=== PATIENT | female | born 1935 | race African-American/Black ===

== ENCOUNTER 2020-09-06 09:16 | Inpatient (IN) | payer MEDICARE ==
[~2020-09-06] VITALS: Ht 167.6 cm; Wt 61.2 kg
[2020-09-06] MEDS ORDERED: IBUPROFEN 600MG TABLET PO STA (09:41)
[2020-09-06] MEDS ORDERED: SODIUM CHLORIDE 0.9% 500 ML IV ONE (09:45)
[2020-09-06 10:03] LABS: BASOPHILS % 0.4 % (0.0-2.0); EOSINOPHILS % 1.6 % (0.0-5.0); HEMATOCRIT. 43.5 % (36.0-48.0); HEMOGLOBIN. 14.5 g/dL (12.0-16.0); LYMPHOCYTES % 9.7 % (20.0-50.0); MEAN CORPUSCULAR HEMOGLOBIN 31.8 pg (28.0-32.0); MEAN CORPUSCULAR VOLUME 95.5 fL (81.0-99.0); MEAN PLATELET VOLUME 8.5 fl (7.4-10.4); MONOCYTES % 5.5 % (2.0-8.0); NEUTROPHILS % 82.8 % (40.0-76.0); PLATELET 175 x1000/uL (130-400); RED BLOOD CELL COUNT 4.55 mill/uL (4.2-5.4); RED CELL DISTRIBUTION WIDTH 13.2 % (11.6-14.6)
[2020-09-06 10:11] LABS: CHLORIDE 105 mEq/L (98-107)
[2020-09-06 10:16] LABS: PROTHROMBIN TIME 10.8 sec (9.6-11.0)
[2020-09-06] MEDS ORDERED: CEFTRIAXONE 1 G PREMIX 50 ML IV SCH (10:30)
[2020-09-06 11:27] LABS: CLARITY URINE CLOUDY (CLEAR); COLOR URINE YELLOW (YELLOW); KETONES URINE NEGATIVE (NEGATIVE); LEUKOCYTE ESTERASE URINE 1+ (NEGATIVE); NITRITE URINE POSITIVE (NEGATIVE); OCCULT BLOOD URINE NEGATIVE (NEGATIVE); PH URINE 7.5 (4.5-8.0); PROTEIN URINE 1+ (NEGATIVE); SPECIFIC GRAVITY URINE 1.008 (1.005-1.030); UROBILINOGEN URINE 0.2 E.U./dL (0.2-1.0)
[2020-09-06] MEDS ORDERED: IPRATROPIUM/ALBUTEROL 0.5-3(2.5)MG/3ML NEB NEB PRN (17:00)
[2020-09-06] MEDS ORDERED: TRAMADOL 50MG TABLET PO PRN ×2 (17:00)
[2020-09-06] MEDS ORDERED: DOCUSATE SODIUM 100MG CAPSULE PO PRN (17:00)
[2020-09-06] MEDS ORDERED: NA PHOS,M-B/NA PHOS,DI-BA ENEMA 118ML PR PRN (17:00)
[2020-09-06] MEDS ORDERED: GUAIFENESIN 200MG/10ML SUGAR FREE UDC PO PRN (17:00)
[2020-09-06] MEDS ORDERED: ACETAMINOPHEN 325MG TABLET PO PRN (17:00)
[2020-09-06] MEDS ORDERED: LEVOFLOXACIN 500MG PREMIX 100 ML IV SCH (17:00)
[2020-09-06] MEDS ORDERED: KETOROLAC 15MG/ML VIAL IV PRN (17:00)
[2020-09-06] MEDS ORDERED: MAGNESIUM/ALUMINUM HYDROXIDE/SIMETHICONE 30ML UDC PO PRN (17:00)
[2020-09-06] MEDS: FAMOTIDINE 20MG TABLET PO SCH (18:04)
[2020-09-06] MEDS: ONDANSETRON HCL 4MG/2ML INJ IV PRN (18:04)
[2020-09-06] MEDS ORDERED: ZOLPIDEM TARTRATE 5MG TABLET PO PRN (20:00)
[2020-09-06 20:22] LABS: FOLIC ACID (FOLATE) SERUM 10.1 ng/mL (>5.38)
[2020-09-06 23:20] LABS: CREATINE KINASE 89 IU/L (26-192)
[2020-09-06 23:21] LABS: CREATINE KINASE MB FRACTION 1.5 ng/mL (0.5-3.6)
[2020-09-07] VITALS: BP 144/72
[2020-09-07] MEDS ORDERED: KEPP250 MT (01:22)
[2020-09-07] MEDS ORDERED: PANT40TA51 MT (01:22)
[2020-09-07] MEDS ORDERED: CARV3.1242 MT (01:22)
[2020-09-07] MEDS ORDERED: AMLO5TAB88 MT (01:22)
[2020-09-07] MEDS ORDERED: FURO-152 MT (01:22)
[2020-09-07 04:30] VITALS: BP 125/70
[2020-09-07] MEDS: ONDANSETRON HCL 4MG/2ML INJ IV PRN (08:33)
[2020-09-07 08:41] LABS: BASOPHILS % 0.3 % (0.0-2.0); EOSINOPHILS % 1.6 % (0.0-5.0); HEMATOCRIT. 39.2 % (36.0-48.0); HEMOGLOBIN. 13.1 g/dL (12.0-16.0); LYMPHOCYTES % 13.2 % (20.0-50.0); MEAN CORPUSCULAR HEMOGLOBIN 32.2 pg (28.0-32.0); MEAN CORPUSCULAR VOLUME 96.1 fL (81.0-99.0); MONOCYTES % 7.4 % (2.0-8.0); NEUTROPHILS % 77.5 % (40.0-76.0); PLATELET 171 x1000/uL (130-400); RED BLOOD CELL COUNT 4.08 mill/uL (4.2-5.4); RED CELL DISTRIBUTION WIDTH 12.9 % (11.6-14.6)
[2020-09-07 09:01] LABS: CHLORIDE 107 mEq/L (98-107)
[2020-09-07 09:14] LABS: PHOSPHORUS 3.5 mg/dL (2.5-4.9)
[2020-09-07 09:17] LABS: CREATINE KINASE 111 IU/L (26-192)
[2020-09-07] MEDS: ASPIRIN 325MG EC TABLET PO SCH (09:47)
[2020-09-07] MEDS: CHOLECALCIFEROL (D3) 1000 UNIT TABLET PO SCH (09:47)
[2020-09-07] MEDS: ZINC SULFATE 220 MG ( 50 ) CAPSULE PO SCH (09:47)
[2020-09-07] MEDS: ENOXAPARIN 30MG/0.3ML SYR SUBCUT SCH ×2 (09:48→17:15)
[2020-09-07 10:30] VITALS: BP 156/77
[2020-09-07 12:00] VITALS: BP 154/76
[2020-09-07 16:00] VITALS: BP 147/78
[2020-09-07] MEDS: LEVOFLOXACIN 250MG PREMIX 50 ML IV SCH (17:24)
[2020-09-07] MEDS: FAMOTIDINE 20MG TABLET PO SCH (17:25)
[2020-09-07] MEDS ORDERED: INSU100I28 SQ (20:13)
[2020-09-07 20:30] VITALS: BP_SYST 139; BP_SYST 161; BP_DIAS 52; BP_DIAS 82
[2020-09-07] MEDS: CLONIDINE 0.1MG TABLET PO PRN (21:54)
[2020-09-07] MEDS ORDERED: ASPI-986 MT (23:05)
[2020-09-07] MEDS ORDERED: Vitamin D3 PO (23:05)
[2020-09-07] MEDS ORDERED: INSLIS SUBCUT (23:05)
[2020-09-08 00:30] VITALS: BP 139/78
[2020-09-08 04:30] VITALS: BP 149/80
[2020-09-08] MEDS: ZINC SULFATE 220 MG ( 50 ) CAPSULE PO SCH (08:54)
[2020-09-08] MEDS: ASPIRIN 325MG EC TABLET PO SCH (08:54)
[2020-09-08] MEDS: CLONIDINE 0.1MG TABLET PO PRN (08:54)
[2020-09-08 09:24] VITALS: BP 165/78
[2020-09-08] MEDS: ACETAMINOPHEN 325MG TABLET PO PRN ×2 (10:23→23:16)
[2020-09-08] MEDS: CHOLECALCIFEROL (D3) 1000 UNIT TABLET PO SCH (14:45)
[2020-09-08] MEDS: FAMOTIDINE 20MG TABLET PO SCH (17:09)
[2020-09-08] MEDS: ENOXAPARIN 30MG/0.3ML SYR SUBCUT SCH (17:09)
[2020-09-08] MEDS: LEVOFLOXACIN 250MG PREMIX 50 ML IV SCH (17:09)
[2020-09-08 17:46] VITALS: BP 154/71
[2020-09-08 20:30] VITALS: BP 149/82
[2020-09-09] VITALS (7 sets, daily range): BP systolic 138–162; BP diastolic 61–84
[2020-09-09] MEDS: ZINC SULFATE 220 MG ( 50 ) CAPSULE PO SCH (08:47)
[2020-09-09] MEDS: ASPIRIN 325MG EC TABLET PO SCH (08:47)
[2020-09-09] MEDS: CARVEDILOL 3.125 MG TABLET PO SCH ×2 (08:47→17:15)
[2020-09-09] MEDS: LEVETIRACETAM 250MG TABLET PO SCH ×2 (08:47→17:15)
[2020-09-09] MEDS: ACETAMINOPHEN 325MG TABLET PO PRN (08:52)
[2020-09-09] MEDS: ONDANSETRON HCL 4MG/2ML INJ IV PRN (08:52)
[2020-09-09] MEDS ORDERED: AMLODIPINE 5MG TABLET PO SCH (09:00)
[2020-09-09] MEDS: CHOLECALCIFEROL (D3) 1000 UNIT TABLET PO SCH (10:09)
[2020-09-09] MEDS: FAMOTIDINE 20MG TABLET PO SCH (17:15)
[2020-09-09] MEDS: ENOXAPARIN 30MG/0.3ML SYR SUBCUT SCH (17:15)
[2020-09-09] MEDS: LEVOFLOXACIN 250MG PREMIX 50 ML IV SCH (17:16)
== END 2020-09-09 18:34 | disposition home health service (06) | DRG 871 ==
LOC: ER 09:16 → MICUSO 14:21 → SUPCPDRO 16:54 → 6WST 23:20
PROVIDERS: ADMIT Internal Medicine; ATTEND Internal Medicine
DX: A41.9 Sepsis, unspecified organism (principal); N17.0 Acute kidney failure with tubular necrosis; E44.1 Mild protein-calorie malnutrition; N39.0 Urinary tract infection, site not specified; E11.9 Type 2 diabetes mellitus without complications; J44.9 Chronic obstructive pulmonary disease, unspecified; I10 Essential (primary) hypertension; B96.20 Unspecified Escherichia coli [E. coli] as the cause of diseases classified elsewhere; E78.00 Pure hypercholesterolemia, unspecified; I25.10 Atherosclerotic heart disease of native coronary artery without angina pectoris; W18.39XA Other fall on same level, initial encounter; Z95.1 Presence of aortocoronary bypass graft; Z68.21 Body mass index [BMI] 21.0-21.9, adult; Z88.8 Allergy status to other drugs, medicaments and biological substances; Z79.899 Other long term (current) drug therapy; Y93.89 Activity, other specified; Y92.89 Other specified places as the place of occurrence of the external cause; Y99.8 Other external cause status; Z20.822 Contact with and (suspected) exposure to COVID-19
CPT/HCPCS: 36415; 71045; 73560; 80053; 80061; 81003; 82550; 82553; 82607; 82746; 82962; 83036; 83540; 83550; 83605; 83735; 83880; 84100; 84484; 85025; 87077; 87186; 93005; 93306; 93970; 97116; 97162; 97166; 97530; 99285; C9803; J0696; J1650; J1956; J2405; J7030; J7040; U0003

== ENCOUNTER 2021-03-19 14:39 | Inpatient (IN) | payer MEDICARE, OTHER ==
[~2021-03-19] VITALS: Ht 162.6 cm; Wt 69.4 kg
[~2021-03-19 14:39] MED LIST: AMLO5TAB88 MT; ASPI-986 MT; CARV3.1242 MT; FURO-152 MT; INSLIS SUBCUT; INSU100I28 SQ; KEPP250 MT; PANT40TA51 MT; Vitamin D3 PO
[2021-03-19 17:25] LABS: BASOPHILS % 0.8 % (0.0-2.0); EOSINOPHILS % 2.3 % (0.0-5.0); HEMATOCRIT. 44.2 % (36.0-48.0); HEMOGLOBIN. 14.2 g/dL (12.0-16.0); LYMPHOCYTES % 19.5 % (20.0-50.0); MEAN CORPUSCULAR HEMOGLOBIN 31.1 pg (28.0-32.0); MEAN CORPUSCULAR VOLUME 97.3 fL (81.0-99.0); MONOCYTES % 8.8 % (2.0-8.0); NEUTROPHILS % 68.6 % (40.0-76.0); RED BLOOD CELL COUNT 4.55 mill/uL (4.2-5.4); RED CELL DISTRIBUTION WIDTH 13.5 % (11.6-14.6)
[2021-03-19 17:30] LABS: CHLORIDE 103 mEq/L (98-107)
[2021-03-19 17:31] LABS: INR 1.1; PROTHROMBIN TIME 11.3 sec (9.6-11.0)
[2021-03-19] MEDS ORDERED: ALBUTEROL (0.083%) 2.5MG/3ML NEB HHN SCH (18:00)
[2021-03-19] MEDS ORDERED: SODIUM POLYSTYRENE SULFONATE 15 G/60 ML BOT PO SCH (18:00)
[2021-03-19] MEDS ORDERED: SODIUM CHLORIDE 0.9% 1000ML BAG (SEPSIS BOLUS) IV SCH (18:00)
[2021-03-19] MEDS ORDERED: SODIUM BICARBONATE 8.4% 1 MEQ/ML 50ML SYR IV SCH (18:00)
[2021-03-19 21:09] LABS: CLARITY URINE CLEAR (CLEAR); COLOR URINE YELLOW (YELLOW); KETONES URINE NEGATIVE (NEGATIVE); LEUKOCYTE ESTERASE URINE NEGATIVE (NEGATIVE); NITRITE URINE NEGATIVE (NEGATIVE); OCCULT BLOOD URINE NEGATIVE (NEGATIVE); PROTEIN URINE 1+ (NEGATIVE); SPECIFIC GRAVITY URINE 1.007 (1.005-1.030); UROBILINOGEN URINE 0.2 E.U./dL (0.2-1.0)
[2021-03-19] MEDS ORDERED: MAGNESIUM/ALUMINUM HYDROXIDE/SIMETHICONE 30ML UDC PO PRN (21:30)
[2021-03-19] MEDS ORDERED: GUAIFENESIN 200MG/10ML SUGAR FREE UDC PO PRN (21:30)
[2021-03-19] MEDS ORDERED: ENOXAPARIN 40MG/0.4ML SYR SUBCUT SCH (21:30)
[2021-03-19] MEDS: SODIUM CHLORIDE 0.45% 1,000 ML IV SCH (22:19)
[2021-03-19] MEDS: AMLODIPINE 10MG TABLET PO SCH (22:19)
[2021-03-19] MEDS: ACETAMINOPHEN 325MG TABLET PO PRN (23:14)
[2021-03-20 05:48] LABS: BASOPHILS % 0.6 % (0.0-2.0); EOSINOPHILS % 2.7 % (0.0-5.0); HEMOGLOBIN. 14.1 g/dL (12.0-16.0); LYMPHOCYTES % 21.4 % (20.0-50.0); MEAN CORPUSCULAR HEMOGLOBIN 33.5 pg (28.0-32.0); MEAN CORPUSCULAR VOLUME 97.3 fL (81.0-99.0); MONOCYTES % 10.2 % (2.0-8.0); NEUTROPHILS % 65.1 % (40.0-76.0); PLATELET 173 x1000/uL (130-400); RED BLOOD CELL COUNT 4.21 mill/uL (4.2-5.4)
[2021-03-20 05:51] LABS: CHLORIDE 108 mEq/L (98-107)
[2021-03-20 06:11] LABS: T4 FREE 1.13 ng/dL (0.76-1.46)
[2021-03-20] MEDS: ONDANSETRON HCL 4MG/2ML INJ IV PRN ×2 (08:06→14:41)
[2021-03-20] MEDS: AMLODIPINE 10MG TABLET PO SCH (09:00)
[2021-03-20] MEDS: MULTIVITAMINS,THER W-MINERALS TABLET PO SCH (09:00)
[2021-03-20] MEDS ORDERED: DEXTROSE 50% WATER 50ML SYRINGE IV PRN (11:00)
[2021-03-20] MEDS: ENOXAPARIN 30MG/0.3ML SYR SUBCUT SCH (11:26)
[2021-03-20] MEDS: SODIUM CHLORIDE 0.45% 1,000 ML IV SCH (11:28)
[2021-03-20] MEDS: LEVETIRACETAM 250MG TABLET PO SCH ×2 (11:30→23:02)
[2021-03-20] MEDS: ASPIRIN 325MG TABLET PO SCH (12:01)
[2021-03-20] MEDS: DOCUSATE SODIUM 100MG CAPSULE PO PRN (12:01)
[2021-03-20] MEDS: PANTOPRAZOLE 40MG DR TABLET PO SCH ×2 (12:01→21:43)
[2021-03-20] MEDS: FUROSEMIDE 20MG TABLET PO SCH ×2 (12:02→21:44)
[2021-03-20] MEDS: BLOOD SUGAR DIAGNOSTIC STRIP TEST SCH ×3 (12:22→21:38)
[2021-03-20] MEDS: INSULIN LISPRO 100 UNITS/ML SUBCUT SCH ×3 (12:32→21:45)
[2021-03-20] MEDS: CARVEDILOL 3.125 MG TABLET PO SCH ×2 (12:41→21:44)
[2021-03-20 20:00] VITALS: BP 136/75
[2021-03-20] MEDS: ACETAMINOPHEN 325MG TABLET PO PRN (20:24)
[2021-03-20 22:00] VITALS: BP 136/75
[2021-03-20] MEDS: INSULIN GLARGINE UD 100 UNITS/ML SYR SUBCUT SCH (23:52)
[2021-03-21] VITALS: BP 148/78
[2021-03-21] MEDS: SODIUM CHLORIDE 0.45% 1,000 ML IV SCH ×2 (03:08→16:12)
[2021-03-21 04:00] VITALS: BP 134/64
[2021-03-21] MEDS: BLOOD SUGAR DIAGNOSTIC STRIP TEST SCH ×4 (06:32→21:33)
[2021-03-21] MEDS: INSULIN LISPRO 100 UNITS/ML SUBCUT SCH ×4 (06:32→21:32)
[2021-03-21 08:00] VITALS: BP 148/73
[2021-03-21] MEDS: AMLODIPINE 10MG TABLET PO SCH (08:29)
[2021-03-21] MEDS: PANTOPRAZOLE 40MG DR TABLET PO SCH ×2 (08:29→21:25)
[2021-03-21] MEDS: MULTIVITAMINS,THER W-MINERALS TABLET PO SCH (08:29)
[2021-03-21] MEDS: LEVETIRACETAM 250MG TABLET PO SCH ×2 (08:30→21:25)
[2021-03-21] MEDS: FUROSEMIDE 20MG TABLET PO SCH ×2 (08:30→17:25)
[2021-03-21] MEDS: ENOXAPARIN 30MG/0.3ML SYR SUBCUT SCH (08:30)
[2021-03-21] MEDS: CARVEDILOL 3.125 MG TABLET PO SCH ×2 (08:30→21:26)
[2021-03-21] MEDS: ASPIRIN 325MG TABLET PO SCH ×2 (08:39→08:40)
[2021-03-21] MEDS: ONDANSETRON HCL 4MG/2ML INJ IV PRN (08:46)
[2021-03-21 12:00] VITALS: BP 140/78
[2021-03-21 16:00] VITALS: BP 149/75
[2021-03-21 20:00] VITALS: BP 154/69
[2021-03-21] MEDS: INSULIN GLARGINE UD 100 UNITS/ML SYR SUBCUT SCH (21:33)
[2021-03-22] VITALS: BP 114/58
[2021-03-22 04:00] VITALS: BP 131/64
[2021-03-22] MEDS: BLOOD SUGAR DIAGNOSTIC STRIP TEST SCH ×4 (06:40→21:16)
[2021-03-22] MEDS: INSULIN LISPRO 100 UNITS/ML SUBCUT SCH ×4 (07:10→21:23)
[2021-03-22 08:00] VITALS: BP 144/75
[2021-03-22 08:16] LABS: VITAMIN B12 SERUM 580 pg/mL (211-911)
[2021-03-22] MEDS: AMLODIPINE 10MG TABLET PO SCH (09:46)
[2021-03-22] MEDS: MULTIVITAMINS,THER W-MINERALS TABLET PO SCH (09:46)
[2021-03-22] MEDS: PANTOPRAZOLE 40MG DR TABLET PO SCH ×2 (09:46→21:16)
[2021-03-22] MEDS: ASPIRIN 325MG TABLET PO SCH (09:46)
[2021-03-22] MEDS: FUROSEMIDE 20MG TABLET PO SCH ×2 (09:46→18:16)
[2021-03-22] MEDS: LEVETIRACETAM 250MG TABLET PO SCH ×2 (09:46→21:22)
[2021-03-22] MEDS: CARVEDILOL 3.125 MG TABLET PO SCH ×2 (09:46→21:22)
[2021-03-22] MEDS ORDERED: GADOTERATE MEGLUMINE 5 MMOL/10 ML VIAL IV ONE (10:45)
[2021-03-22 12:00] VITALS: BP 148/81
[2021-03-22] MEDS: CLOPIDOGREL 75MG TABLET PO SCH (13:22)
[2021-03-22] MEDS: SODIUM CHLORIDE 0.45% 1,000 ML IV SCH (13:50)
[2021-03-22] MEDS: ENOXAPARIN 30MG/0.3ML SYR SUBCUT SCH (13:51)
[2021-03-22 16:00] VITALS: BP 109/70
[2021-03-22 20:00] VITALS: BP 128/77
[2021-03-22] MEDS: ATORVASTATIN CALCIUM 40MG TABLET PO SCH (21:17)
[2021-03-22] MEDS: INSULIN GLARGINE UD 100 UNITS/ML SYR SUBCUT SCH (21:23)
[2021-03-23] VITALS: BP 131/69
[2021-03-23 04:00] VITALS: BP 127/69
[2021-03-23] MEDS: BLOOD SUGAR DIAGNOSTIC STRIP TEST SCH ×4 (06:03→20:47)
[2021-03-23] MEDS: INSULIN LISPRO 100 UNITS/ML SUBCUT SCH ×4 (06:03→21:02)
[2021-03-23] MEDS: FUROSEMIDE 20MG TABLET PO SCH ×2 (06:43→17:22)
[2021-03-23 08:00] VITALS: BP 147/71
[2021-03-23] MEDS: AMLODIPINE 10MG TABLET PO SCH (10:05)
[2021-03-23] MEDS: LEVETIRACETAM 250MG TABLET PO SCH ×2 (10:05→20:49)
[2021-03-23] MEDS: MULTIVITAMINS,THER W-MINERALS TABLET PO SCH (10:05)
[2021-03-23] MEDS: ASPIRIN 81MG EC TABLET PO SCH (10:05)
[2021-03-23] MEDS: PANTOPRAZOLE 40MG DR TABLET PO SCH ×2 (10:05→20:49)
[2021-03-23] MEDS: CLOPIDOGREL 75MG TABLET PO SCH (10:06)
[2021-03-23] MEDS: CARVEDILOL 3.125 MG TABLET PO SCH ×2 (10:06→20:48)
[2021-03-23 12:00] VITALS: BP 139/78
[2021-03-23] MEDS: ENOXAPARIN 30MG/0.3ML SYR SUBCUT SCH (15:50)
[2021-03-23] MEDS: ACETAMINOPHEN 325MG TABLET PO PRN (15:50)
[2021-03-23 16:00] VITALS: BP 133/73
[2021-03-23 20:00] VITALS: BP 126/66
[2021-03-23] MEDS: ATORVASTATIN CALCIUM 40MG TABLET PO SCH (20:49)
[2021-03-23] MEDS: INSULIN GLARGINE UD 100 UNITS/ML SYR SUBCUT SCH (22:04)
[2021-03-24] VITALS: BP 120/70
[2021-03-24 04:00] VITALS: BP 129/63
[2021-03-24] MEDS: BLOOD SUGAR DIAGNOSTIC STRIP TEST SCH ×4 (06:46→21:00)
[2021-03-24] MEDS: INSULIN LISPRO 100 UNITS/ML SUBCUT SCH ×4 (06:46→22:13)
[2021-03-24] MEDS: FUROSEMIDE 20MG TABLET PO SCH ×2 (06:48→16:39)
[2021-03-24 08:00] VITALS: BP 138/66
[2021-03-24] MEDS: LEVETIRACETAM 250MG TABLET PO SCH ×2 (09:29→22:11)
[2021-03-24] MEDS: MULTIVITAMINS,THER W-MINERALS TABLET PO SCH (09:29)
[2021-03-24] MEDS: CARVEDILOL 3.125 MG TABLET PO SCH ×2 (09:29→22:12)
[2021-03-24] MEDS: CLOPIDOGREL 75MG TABLET PO SCH (09:29)
[2021-03-24] MEDS: ASPIRIN 81MG EC TABLET PO SCH (09:29)
[2021-03-24] MEDS: ENOXAPARIN 30MG/0.3ML SYR SUBCUT SCH (09:30)
[2021-03-24] MEDS: AMLODIPINE 10MG TABLET PO SCH (09:30)
[2021-03-24] MEDS: PANTOPRAZOLE 40MG DR TABLET PO SCH ×2 (09:30→22:11)
[2021-03-24] MEDS ORDERED: LACTULOSE 20G/30ML UDC PO PRN (10:15)
[2021-03-24] MEDS ORDERED: BISACODYL 10MG SUPP PR PRN (10:15)
[2021-03-24] MEDS: POLYETHYLENE GLYCOL 3350 (17GM) 1 DOSE PACK PO SCH (11:54)
[2021-03-24 12:00] VITALS: BP 141/74
[2021-03-24 16:00] VITALS: BP 135/70
[2021-03-24] MEDS: DOCUSATE SODIUM 100MG CAPSULE PO PRN (17:03)
[2021-03-24 20:00] VITALS: BP 126/66
[2021-03-24] MEDS: ATORVASTATIN CALCIUM 40MG TABLET PO SCH (22:12)
[2021-03-24] MEDS: INSULIN GLARGINE UD 100 UNITS/ML SYR SUBCUT SCH (22:13)
[2021-03-25] VITALS: BP 120/70
[2021-03-25 04:00] VITALS: BP 139/68
[2021-03-25] MEDS: INSULIN LISPRO 100 UNITS/ML SUBCUT SCH ×4 (06:36→21:38)
[2021-03-25] MEDS: BLOOD SUGAR DIAGNOSTIC STRIP TEST SCH ×4 (06:36→21:32)
[2021-03-25] MEDS: FUROSEMIDE 20MG TABLET PO SCH ×2 (06:44→17:08)
[2021-03-25 08:00] VITALS: BP 137/75
[2021-03-25] MEDS: AMLODIPINE 10MG TABLET PO SCH (09:02)
[2021-03-25] MEDS: ASPIRIN 81MG EC TABLET PO SCH (09:02)
[2021-03-25] MEDS: MULTIVITAMINS,THER W-MINERALS TABLET PO SCH (09:02)
[2021-03-25] MEDS: PANTOPRAZOLE 40MG DR TABLET PO SCH ×2 (09:02→21:29)
[2021-03-25] MEDS: ENOXAPARIN 30MG/0.3ML SYR SUBCUT SCH (09:02)
[2021-03-25] MEDS: CLOPIDOGREL 75MG TABLET PO SCH (09:02)
[2021-03-25] MEDS: POLYETHYLENE GLYCOL 3350 (17GM) 1 DOSE PACK PO SCH (09:02)
[2021-03-25] MEDS: CARVEDILOL 3.125 MG TABLET PO SCH ×2 (09:02→21:32)
[2021-03-25] MEDS: LEVETIRACETAM 250MG TABLET PO SCH ×2 (09:02→21:32)
[2021-03-25 12:00] VITALS: BP 129/70
[2021-03-25 16:00] VITALS: BP 126/52
[2021-03-25 20:00] VITALS: BP 130/65
[2021-03-25] MEDS: ATORVASTATIN CALCIUM 40MG TABLET PO SCH (21:32)
[2021-03-25] MEDS: INSULIN GLARGINE UD 100 UNITS/ML SYR SUBCUT SCH (21:38)
[2021-03-26] VITALS: BP 143/70
[2021-03-26 04:00] VITALS: BP 141/72
[2021-03-26] MEDS: FUROSEMIDE 20MG TABLET PO SCH ×2 (06:21→17:28)
[2021-03-26] MEDS: BLOOD SUGAR DIAGNOSTIC STRIP TEST SCH ×4 (06:28→21:42)
[2021-03-26] MEDS: INSULIN LISPRO 100 UNITS/ML SUBCUT SCH ×4 (06:28→21:49)
[2021-03-26 06:55] LABS: HEMATOCRIT 41.5 % (36.0-48.0); HEMOGLOBIN 14.1 g/dL (12.0-16.0); MEAN CORPUSCULAR HEMOGLOBIN 33.2 pg (28.0-32.0); MEAN CORPUSCULAR VOLUME 97.9 fL (81.0-99.0); PLATELET 177 x1000/uL (130-400); RED BLOOD CELL COUNT 4.24 mill/uL (4.2-5.4); RED CELL DISTRIBUTION WIDTH 13.5 % (11.6-14.6)
[2021-03-26 08:00] VITALS: BP 138/68
[2021-03-26] MEDS: POLYETHYLENE GLYCOL 3350 (17GM) 1 DOSE PACK PO SCH (09:10)
[2021-03-26] MEDS: PANTOPRAZOLE 40MG DR TABLET PO SCH ×2 (09:11→21:33)
[2021-03-26] MEDS: MULTIVITAMINS,THER W-MINERALS TABLET PO SCH (09:11)
[2021-03-26] MEDS: CLOPIDOGREL 75MG TABLET PO SCH (09:11)
[2021-03-26] MEDS: LEVETIRACETAM 250MG TABLET PO SCH ×2 (09:11→21:33)
[2021-03-26] MEDS: ASPIRIN 81MG EC TABLET PO SCH (09:11)
[2021-03-26] MEDS: AMLODIPINE 10MG TABLET PO SCH (09:11)
[2021-03-26] MEDS: CARVEDILOL 3.125 MG TABLET PO SCH ×2 (09:11→21:33)
[2021-03-26] MEDS: ENOXAPARIN 40MG/0.4ML SYR SUBCUT SCH (09:12)
[2021-03-26 12:00] VITALS: BP 129/57
[2021-03-26 16:00] VITALS: BP 134/67
[2021-03-26 20:00] VITALS: BP 123/51
[2021-03-26] MEDS: ATORVASTATIN CALCIUM 40MG TABLET PO SCH (21:33)
[2021-03-26] MEDS: INSULIN GLARGINE UD 100 UNITS/ML SYR SUBCUT SCH (21:48)
[2021-03-27] VITALS: BP 133/67
[2021-03-27 04:00] VITALS: BP_SYST 118; BP_DIAS 60; BP_DIAS 61
[2021-03-27] MEDS: BLOOD SUGAR DIAGNOSTIC STRIP TEST SCH ×4 (06:24→20:56)
[2021-03-27] MEDS: INSULIN LISPRO 100 UNITS/ML SUBCUT SCH ×4 (06:24→20:56)
[2021-03-27] MEDS: FUROSEMIDE 20MG TABLET PO SCH ×2 (06:24→16:32)
[2021-03-27 07:58] VITALS: BP 141/62
[2021-03-27] MEDS: SERTRALINE HCL 25MG TABLET PO SCH (09:00)
[2021-03-27] MEDS: ASPIRIN 81MG EC TABLET PO SCH (09:10)
[2021-03-27] MEDS: LEVETIRACETAM 250MG TABLET PO SCH ×2 (09:11→20:56)
[2021-03-27] MEDS: PANTOPRAZOLE 40MG DR TABLET PO SCH ×2 (09:12→20:56)
[2021-03-27] MEDS: CLOPIDOGREL 75MG TABLET PO SCH (09:12)
[2021-03-27] MEDS: AMLODIPINE 10MG TABLET PO SCH (09:12)
[2021-03-27] MEDS: MULTIVITAMINS,THER W-MINERALS TABLET PO SCH (09:12)
[2021-03-27] MEDS: ACETAMINOPHEN 325MG TABLET PO PRN (09:13)
[2021-03-27] MEDS: POLYETHYLENE GLYCOL 3350 (17GM) 1 DOSE PACK PO SCH (09:13)
[2021-03-27] MEDS: CARVEDILOL 3.125 MG TABLET PO SCH ×2 (09:13→20:56)
[2021-03-27] MEDS: ENOXAPARIN 40MG/0.4ML SYR SUBCUT SCH (09:14)
[2021-03-27 12:00] VITALS: BP 113/59
[2021-03-27 16:30] VITALS: BP 135/66
[2021-03-27 20:00] VITALS: BP_SYST 110; BP_SYST 124; BP_DIAS 54; BP_DIAS 59
[2021-03-27] MEDS: ATORVASTATIN CALCIUM 40MG TABLET PO SCH (20:55)
[2021-03-27] MEDS: INSULIN GLARGINE UD 100 UNITS/ML SYR SUBCUT SCH (21:58)
[2021-03-28] VITALS (7 sets, daily range): BP systolic 118–149; BP diastolic 59–69
[2021-03-28] MEDS: BLOOD SUGAR DIAGNOSTIC STRIP TEST SCH ×4 (06:02→20:21)
[2021-03-28] MEDS: INSULIN LISPRO 100 UNITS/ML SUBCUT SCH ×4 (06:02→20:20)
[2021-03-28] MEDS: FUROSEMIDE 20MG TABLET PO SCH ×2 (06:03→17:14)
[2021-03-28] MEDS: ASPIRIN 81MG EC TABLET PO SCH (08:49)
[2021-03-28] MEDS: SERTRALINE HCL 25MG TABLET PO SCH (08:49)
[2021-03-28] MEDS: PANTOPRAZOLE 40MG DR TABLET PO SCH ×2 (08:49→20:18)
[2021-03-28] MEDS: AMLODIPINE 10MG TABLET PO SCH (08:50)
[2021-03-28] MEDS: CLOPIDOGREL 75MG TABLET PO SCH (08:51)
[2021-03-28] MEDS: LEVETIRACETAM 250MG TABLET PO SCH ×2 (08:51→20:18)
[2021-03-28] MEDS: MULTIVITAMINS,THER W-MINERALS TABLET PO SCH (08:51)
[2021-03-28] MEDS: CARVEDILOL 3.125 MG TABLET PO SCH ×2 (08:52→20:19)
[2021-03-28] MEDS: POLYETHYLENE GLYCOL 3350 (17GM) 1 DOSE PACK PO SCH (08:52)
[2021-03-28] MEDS: ENOXAPARIN 40MG/0.4ML SYR SUBCUT SCH (08:52)
[2021-03-28] MEDS: ONDANSETRON HCL 4MG/2ML INJ IV PRN ×2 (08:54→17:57)
[2021-03-28] MEDS: ACETAMINOPHEN 325MG TABLET PO PRN ×2 (11:32→17:57)
[2021-03-28] MEDS: ATORVASTATIN CALCIUM 40MG TABLET PO SCH (21:00)
[2021-03-28] MEDS: INSULIN GLARGINE UD 100 UNITS/ML SYR SUBCUT SCH (21:56)
[2021-03-29] VITALS: BP 132/63
[2021-03-29 04:45] VITALS: BP 141/71
[2021-03-29] MEDS: BLOOD SUGAR DIAGNOSTIC STRIP TEST SCH ×2 (06:03→11:57)
[2021-03-29] MEDS: INSULIN LISPRO 100 UNITS/ML SUBCUT SCH ×2 (06:03→11:59)
[2021-03-29] MEDS: FUROSEMIDE 20MG TABLET PO SCH (06:04)
[2021-03-29 08:00] VITALS: BP 151/72
[2021-03-29] MEDS: MULTIVITAMINS,THER W-MINERALS TABLET PO SCH (08:50)
[2021-03-29] MEDS: SERTRALINE HCL 25MG TABLET PO SCH (08:50)
[2021-03-29] MEDS: LEVETIRACETAM 250MG TABLET PO SCH (08:51)
[2021-03-29] MEDS: PANTOPRAZOLE 40MG DR TABLET PO SCH (08:51)
[2021-03-29] MEDS: CLOPIDOGREL 75MG TABLET PO SCH (08:51)
[2021-03-29] MEDS: ENOXAPARIN 40MG/0.4ML SYR SUBCUT SCH (08:51)
[2021-03-29] MEDS: POLYETHYLENE GLYCOL 3350 (17GM) 1 DOSE PACK PO SCH (08:51)
[2021-03-29] MEDS: ASPIRIN 81MG EC TABLET PO SCH (08:51)
[2021-03-29] MEDS: AMLODIPINE 10MG TABLET PO SCH (08:52)
[2021-03-29] MEDS: CARVEDILOL 3.125 MG TABLET PO SCH (08:53)
[2021-03-29 12:00] VITALS: BP 120/61
== END 2021-03-29 15:10 | DRG 65 ==
LOC: ER 14:39 → MICUSO 20:54 → EDBEDREQ 21:00 → EDBEDREQSVC 21:00 → EDBEDREQTM 21:00 → 7EST 03-20 17:48
PROVIDERS: ADMIT Hospitalist; ATTEND Hospitalist
PROC: 4A10X4Z Monitoring of Central Nervous Electrical Activity, External Approach (ICD-10-PCS; principal; 2021-03-22)
DX: I63.81 Other cerebral infarction due to occlusion or stenosis of small artery (principal); E44.1 Mild protein-calorie malnutrition; G40.909 Epilepsy, unspecified, not intractable, without status epilepticus; E11.9 Type 2 diabetes mellitus without complications; E87.5 Hyperkalemia; F17.200 Nicotine dependence, unspecified, uncomplicated; I10 Essential (primary) hypertension; I25.10 Atherosclerotic heart disease of native coronary artery without angina pectoris; R62.7 Adult failure to thrive; G93.89 Other specified disorders of brain; K59.00 Constipation, unspecified; Z20.822 Contact with and (suspected) exposure to COVID-19; Z82.49 Family history of ischemic heart disease and other diseases of the circulatory system; Z86.73 Personal history of transient ischemic attack (TIA), and cerebral infarction without residual deficits; Z95.1 Presence of aortocoronary bypass graft; Z79.899 Other long term (current) drug therapy; Z79.82 Long term (current) use of aspirin; Z79.4 Long term (current) use of insulin; Z88.8 Allergy status to other drugs, medicaments and biological substances; Z68.26 Body mass index [BMI] 26.0-26.9, adult
CPT/HCPCS: 36415; 70551; 70552; 71045; 80048; 80053; 80061; 81003; 82607; 82962; 83036; 84439; 84443; 84484; 85025; 85027; 87426; 93005; 93306; 93880; 93970; 95816; 97162; 97166; 97530; 99285; A9577; J1650; J1815; J2405; J3490